=== PATIENT | male | born 1940 | race Caucasian/White ===

== ENCOUNTER 2021-04-07 07:55 | Day surgery (SDC) | payer MEDICARE ==
[~2021-04-07] VITALS: Ht 180.3 cm; Wt 97.7 kg
--- NOTE | ~2021-04-07 | OR ---
[facility] [address], [place] [address] [facility] DATE OF OPERATION: 04/07/2021 SURGEON: Petrona Sun MD PREOPERATIVE DIAGNOSIS: Incarcerated symptomatic left inguinal hernia. POSTOPERATIVE DIAGNOSIS: Incarcerated left inguinal hernia with sliding component (sigmoid colon). PROCEDURES: 1. Repair of incarcerated sliding left inguinal hernia (sigmoid colon). 2. Implantation of Prolene mesh underlay technique (prolonged, complicated, difficult). ANESTHESIA: General endotracheal. Vanesa Calderon CRNA and Fabian Garza CRNA and local 10 mL of 0.25% Marcaine with epinephrine. INDICATION: This 81-year-old white man is a patient of Carlo Ramos. He was noted to have pain in the left groin and was found to have a left inguinal hernia. Examination in the office shows him to have abdominal obesity, but a bulky firm non-reducible left inguinal hernia. This was confirmed on examination earlier in the day. My notes had indicated he had a reducible hernia, but upon review, it actually was not fully reducible only minimally so. He is admitted to undergo repair of the hernia. He understands the risks of bleeding, infection, recurrence, and other unforeseen complications. FINDINGS: A very bulky hernia was noted after all. His abdominal obesity is somewhat obscured finding clinically. He was found to have an incarcerated non-strangulated hernia, which included a portion of sigmoid colon about the size of a baseball. This was essentially in a sliding hernia as the wall of the sigmoid and mesentery were contiguous with the hernia sac itself. This was ultimately freed allowing for complete reduction of the sigmoid colon into the peritoneal cavity. The hernia sac itself was quite bulky, thick and vascularized. It was secured with a running 2-0 silk suture in a horizontal mattress technique allowing for excision of the remaining hernia sac. The cord structures were small, but normal overall. The floor of the canal was somewhat attenuated, but there was no sign of direct hernia proper. Marked attenuation of the external oblique was noted, really only a filmy layer testifying to the PATIENT NAME: MISAEL MALIN OPERATIVE REPORT DATE OF : 40 REPORT #: [id number] PHYSICIAN: PETRONA SUN MD PCP: CARLO RAMOS PAC REPORT IS CONFIDENTIAL AND NOT TO BE RELEASED WITHOUT AUTHORIZATION [facility] [address] [place] [id number] [facility] longstanding nature of this hernia. Ultimately, repair of the floor was undertaken with implantation of Prolene mesh in an underlay technique. DESCRIPTION OF PROCEDURE: The patient was brought to the operating room, given a general LMA type anesthetic. Preoperative antibiotic Ancef was given. Sequential compression device stockings were used. Heparin was subcutaneously administered. The lower abdomen was clipped and prepared with a chlorhexidine based solution and draped sterilely. The bulky hernia could not be reduced despite efforts to do so and only partially reduced and not much of fat. An incision was made directly over the mass in the left groin. Dissection carried through the subcutaneous tissue including Daniel's layer, inferior epigastric vessels were secured with electrocautery. Ultimately, the subcutaneous tissue was and markedly attenuated external oblique fibers over the bulky hernia were noted. This was a testimony to the longstanding nature of the hernia. That filmy layer was incised with electrocautery and the cord structures were identified and easily from the bulky hernia, which was about the size of a baseball. The cord structures were from the bulky hernia and encircled with a Connor drain. Various manipulations in hopes of reducing the hernia were unsuccessful. The sac was incised with electrocautery with all due care revealing inside the hernia sac, which showed a coiled loop of sigmoid colon. Palpation identified the defect to be approximately 3 cm consistent with an indirect hernia. The lateral wall appeared to be fused with the mesocolon, this was freed with meticulous dissection using electrocautery. Various manipulations were required to ultimately reduce the sigmoid colon and its mesentery into the peritoneal cavity, but was accomplished. The hernia sac was quite thickened and relatively vascular. It was oversewn in a running bidirectional fashion with horizontal 2-0 silk suture. The bulky hernia sac was excised and passed for pathology. An Allis clamp was applied to the tendon of the transversus abdominis. The attenuated fibers of the fascia transversalis were incised with electrocautery allowing for blunt dissection of properitoneal fat. A segment of Prolene mesh was cut to an elliptical configuration and secured in an underlay technique with interrupted 2-0 Prolene sutures. A defect was cut in the graft to accommodate the cord structures. The tails of the graft were secured laterally. Given the anatomic findings, the iliohypogastric nerve was excised rather than preserved given the surrounding anatomy and need for secure fixation of the mesh without encumbrance of the nerve itself. Irrigation was undertaken and 10 mL of 0.25% Marcaine was injected locally. Photographs were taken throughout the procedure. The attenuated fibers of the external oblique were reapproximated with 2-0 Vicryl suture, though at least half of the cord remains uncovered by the external oblique at least in the distal portion. Daniel layer was reapproximated with PATIENT NAME: MISAEL MALIN ANDREA OPERATIVE REPORT DATE OF : 40 REPORT #: [id number] PHYSICIAN: PETRONA SUN MD PCP: CARLO RAMOS PAC REPORT IS CONFIDENTIAL AND NOT TO BE RELEASED WITHOUT AUTHORIZATION [address] [place], [place] [address] [facility] interrupted 2-0 Vicryl and the skin was closed with running subcuticular 3-0 Vicryl. Steri-Strips were applied as was an Acticoat silver sponge dressing. The patient tolerated procedure well. Blood loss was less than 20 mL. Sponge, needle and instrument counts were as correct x3. The operation was prolonged, complicated, and difficult lasting three times longer than usual, but was accomplished safely and without complication. MD GABRIELE Sanches/ELLIOTL /[id number] cc: MANDA Pro Copies: ~ PATIENT NAME: MISAEL MALIN OPERATIVE REPORT DATE OF : 40 REPORT #: [id number] PHYSICIAN: PETRONA SUN MD PCP: CARLO RAMOS PAC REPORT IS CONFIDENTIAL AND NOT TO BE RELEASED WITHOUT AUTHORIZATION
[~2021-04-07 07:55] MED LIST: ALLER-TEC10 MG PO; COQ-10100 MG PO; LIPITOR10 MG; METAMUCIL660 GM; MULTI VITAMIN1 EACH PO; PRILOSEC OTC20 MG PO; VIT C-ROSE HIP500 MG PO
[2021-04-07] MEDS ORDERED: CENTRUM SILVER1 EAC3 PO (08:17)
--- NOTE | 2021-04-07 12:19 | NUR ---
04/07/21 1219 Sheets,Nathalie 1214 PT ARRIVED TO PACU ON 6L VIA MASK AND ORAL AIRWAY IN PLACE. VSS.
[2021-04-07] MEDS ORDERED: OXYCODON-ACETA1 EAC2 PO (12:47)
[2021-04-07] MEDS ORDERED: IBUPROFEN600 MG PO (12:47)
[2021-04-07] MEDS ORDERED: ACETAMINOPHEN500 MG PO (12:47)
--- NOTE | 2021-04-07 13:06 | NUR ---
PATIENT BACK TO ROOM FROM PACU. RECEIVED REPORT FROM ALTAF HENDERSON. VSS, PATIENT ON 2L OF O2. PATIENT RATES HIS PAIN 5/10. DENIES NAUSEA. PATIENTS DRESSING IS CLEAN, DRY, AND INTACT. PROVIDED PATIENT WITH APPLESAUCE AND WATER. AT BEDSIDE. CALL LIGHT WITHIN REACH.
--- NOTE | 2021-04-07 13:35 | NUR ---
PATIENT RATES HIS PAIN 5/10. PAIN MEDICATION GIVEN PER SEP.
--- NOTE | 2021-04-07 14:09 | NUR ---
PATIENT IS RESTING COMFORTABLY IN BED. VSS, REMOVED PATIENTS OXYGEN AT 1330 AND HIS 02 SATS OF ROOM AIR ARE 93-95. PATIENT RATES PAIN A 2/10. DENIES NAUSESA. PATIENTS DRESSING HAS A COUPLE OF SMALL SPOTS OF RED DRAINAGE. PATIENT DRINKING WATER. AT BEDSIDE. CALL LIGHT WITHIN REACH.
--- NOTE | 2021-04-07 14:35 | NUR ---
PATIENT UP TO THE BATHROOM WITH 1 RN ASSIST. GAIT STEADY AND TOLERATED WELL. PATIENT VOIDED 300ML. PATIENT RATES PAIN 2/10.
--- NOTE | 2021-04-07 14:45 | NUR ---
PROVIDED PATIENT WITH DISCHARGE INSTRUCTIONS. PATIENT VERBALIZED UNDERSTANDING AND ALL QUESTIONS WERE ANSWERED. PROVIDED PATIENT WITH WHEELCHAIR RIDE TO FRONT OF HOSPITAL WHERE WAS WAITING.
--- NOTE | 2021-04-08 15:47 | PATH ---
[facility] [address], [place] [address] Signed SPECIMEN(S): A LEFT INGUINAL HERNIA SAC SPECIMEN SOURCE: A. LEFT INGUINAL HERNIA SAC CLINICAL HISTORY: Left inguinal hernia repair. FINAL PATHOLOGIC DIAGNOSIS: Hernia sac, left inguinal, excision: - Lobulated mature fibroadipose tissue, consistent with lipoma. NAL:[facility]:C2[facility] MICROSCOPIC EXAMINATION: Histologic sections of all submitted blocks are examined by light microscopy. These findings, together with the gross examination, support the pathologic diagnosis. GROSS DESCRIPTION: The specimen, labeled "GA, A.," and designated on the requisition "left inguinal hernia sac," is received in formalin and consists of kenny-pink membranous adipose tissue fragment measuring 9.0 x 7.8 x 2.1 cm. Cut surface is unremarkable and collections representative sections are submitted in cassette (A1). AT (under the direct supervision of a pathologist) The Gross Description was prepared using a voice recognition system. The report was reviewed for accuracy; however, sound-alike word errors, addition and/or deletions may occur. If there is any question about this report, please contact Client Services. PERFORMING LABORATORY: The technical component was performed by [facility], [address] [place] [address] (Textile Conversion Manager: Shaniec Portillo MD; CLIA# [id number]). Professional interpretation was performed by [facility], [facility], [address] [address] (CLIA# [id number]). Diagnostician: Patito Craig MD Pathologist Electronically Signed 04/08/2021 PATIENT NAME: MISAEL MALIN PATHOLOGY DATE OF : 40 REPORT #: [id number] PHYSICIAN: JOAN PATHOLOGY PCP: CARLO RAMOS PAC REPORT IS CONFIDENTIAL AND NOT TO BE RELEASED WITHOUT AUTHORIZATION [address] [place], [place] [address] Signed Copies: ~ PATIENT NAME: MISAEL MALIN PATHOLOGY DATE OF : 40 REPORT #: [id number] PHYSICIAN: JOAN PATHOLOGY PCP: CARLO RAMOS PAC REPORT IS CONFIDENTIAL AND NOT TO BE RELEASED WITHOUT AUTHORIZATION
== END 2021-04-07 14:55 | disposition home or self-care (01) ==
LOC: DS 07:55
PROVIDERS: ATTEND Surgery
PROC: 0YU60JZ Supplement Left Inguinal Region with Synthetic Substitute, Open Approach (ICD-10-PCS; principal; 2021-04-07 08:15)
DX: K40.90 Unilateral inguinal hernia, without obstruction or gangrene, not specified as recurrent (principal); J44.9 Chronic obstructive pulmonary disease, unspecified; Z85.46 Personal history of malignant neoplasm of prostate
CPT/HCPCS: C1781; J0131; J0330; J0690; J1100; J1644; J1885; J2001; J2405; J2704; J3010; J7121

== ENCOUNTER 2022-05-18 07:55 | Day surgery (SDC) | payer MEDICARE ==
[~2022-05-18] VITALS: Ht 180.3 cm; Wt 100.0 kg
--- NOTE | ~2022-05-18 | OR ---
[facility] [address] [place], [place] [address] [facility] DATE OF OPERATION: 05/18/2022 SURGEON: Petrona Sun MD PREOPERATIVE DIAGNOSES: 1. Right inguinal hernia, symptomatic. 2. ITP (idiopathic thrombocytopenia purpura) current platelet count 148,000. POSTOPERATIVE DIAGNOSES: 1. Right indirect inguinal hernia with sliding component (bladder fat). 2. Repair of right inguinal hernia (sliding type) with excision of bladder fat and implantation of Prolene mesh in underlay technique. ANESTHESIA: General endotracheal, Louie Peralta CRNA and local 20 mL of 0.25% Marcaine with epinephrine. INDICATION: This 82-year-old white man is a patient of Carlo Ramos. He underwent repair of a complex incarcerated left inguinal hernia by wv, which had essentially all the sigmoid colon in it, in April of 2021. He has underlying ITP (idiopathic thrombocytopenic purpura) and sees Dr. Shrestha on a routine basis for that. His preoperative platelet count was 148,000. He has no evidence of bleeding, bruising, or other issue. He has developed a right inguinal hernia which is somewhat bulky, but nothing compared to the left side previously. The patient does have history of prostate cancer including surgical resection in 2016. He is admitted at this time to undergo repair of the symptomatic right inguinal hernia. He understands the risks of bleeding, infection, recurrence and so on. FINDINGS: The cord structures were well identified. The iliohypogastric nerve was well identified and ilioinguinal nerve on the left easily seen. An indirect hernia sac was noted as well as bladder fat and sliding component of bladder fat. Repair consisted of dissection of indirect sac, excision of the bladder fat, ligation of the hernia sac and implantation of Prolene mesh in an underlay technique. He tolerated the procedure well. DESCRIPTION OF PROCEDURE: The patient was brought to the operating room, given a general endotracheal anesthetic. PATIENT NAME: MISAEL MALIN OPERATIVE REPORT DATE OF : 40 REPORT #: [id number] PHYSICIAN: PETRONA SUN MD PCP: CARLO RAMOS PAC REPORT IS CONFIDENTIAL AND NOT TO BE RELEASED WITHOUT AUTHORIZATION [facility] [address] [place], [place] [address] [facility] Preoperative antibiotic Ancef was given. Sequential compression device stockings were used and heparin subcutaneously administered. The abdomen was clipped and prepared with a chlorhexidine solution and draped sterilely. A curvilinear incision was made cephalad to the pubic tubercle on the left. Dissection was carried through the thick abdominal wall fatty tissue ultimately extending to the external oblique fascia. This was incised along its fibers revealing the bulky cord and cord structures. An iliohypogastric nerve branch was easily identified and the ilioinguinal nerve which was smaller was identified as well and unharmed. Electrocautery and blunt dissection were used to separate the cord from the floor of the canal. Cord structures were encircled with a [place] drain. Dissection of the indirect hernia sac was undertaken with meticulous care and it is moderately large indirect sac. The and this would be most consistent with a sliding tumor bladder fat. Further dissection of the hernia sac to free the bladder fat was undertaken and it became clear that much of the bladder fat was external to the hernia sac proper. It was ultimately fully isolated and measured approximately 6-8 cm and was found to contain no bladder proper nor ureter or other structure. Reduction to the properitoneal space was a consideration but given its good exposure, simple excision was undertaken with electrocautery causing no bleeding. This allowed for good visualization of indirect sac. The indirect sac was secured with a 2-0 silk suture and redundant hernia sac amputated and passed for pathology. An Allis clamp was applied to the tendon of the transversus abdominis and the attenuated fibers of the fascia of the transversalis were incised with electrocautery. Blunt dissection was used to separate the properitoneal fat. A segment of Prolene mesh was cut to an elliptical configuration and secured in the properitoneal space with interrupted 2-0 Prolene sutures. A defect was cut in the graft to accommodate the cord and the tails of the graft were secured laterally without encumbrance of any regional nerves. 20 mL of 0.25% Marcaine with epinephrine was injected locally. The external oblique was reapproximated with running 2-0 Vicryl suture. Daniel layer was reapproximated with interrupted 2-0 Vicryl and skin closed with running subcuticular 3-0 Vicryl. Steri-Strips were applied as was an Acticoat dressing. The patient tolerated the procedure well. BLOOD LOSS: Minimal. COMPLICATIONS: None. PATIENT NAME: MISAEL MALIN OPERATIVE REPORT DATE OF : 40 REPORT #: [id number] PHYSICIAN: PETRONA SUN MD PCP: CARLO RAMOS PAC REPORT IS CONFIDENTIAL AND NOT TO BE RELEASED WITHOUT AUTHORIZATION [address] [address] [facility] MD GABRIELE Sanches/MODL /[id number] cc: MANDA Pro Copies: ~ PATIENT NAME: MISAEL MALIN OPERATIVE REPORT DATE OF : 40 REPORT #: [id number] PHYSICIAN: PETRONA SUN MD PCP: CARLO RAMOS PAC REPORT IS CONFIDENTIAL AND NOT TO BE RELEASED WITHOUT AUTHORIZATION
[~2022-05-18 07:55] MED LIST changes: +ACETAMINOPHEN500 MG PO; +CENTRUM SILVER1 EAC3 PO; +CO Q-10 WITH L1 EACH PO; +IBUPROFEN600 MG PO; +OXYCODON-ACETA1 EAC2 PO
--- NOTE | 2022-05-18 12:44 | NUR ---
05/18/22 1244 Tianna Harrington 1238- PT ARRIVES TO PACU AWAKE AND TALKING. PT REPORTS NO PAIN OR NAUSEA. DOES FALL ASLEEP INTERMITTENTLY. AWAKES ON AND OFF ON HIS OWN. RESP EVEN AND UNLABORED. OXYGEN SAT LOW 90'S ON RA. 1241- PT ENCOURAGED TO COUGH AND DEEP BREATHE HIS OXYGEN SAT DROPPED TO 87% ON RA. PT IS ABLE TO DO THIS AND OXYGEN SAT INCREASED TO 94% ON RA.
--- NOTE | 2022-05-18 14:37 | NUR ---
1310: PATIENT BACK IN DAY SURGERY ROOM FROM PACU. RATES PAIN 3/10. GIVEN ICE WATER AND CHOCOLATE PUDDING. RIGHT GROIN DRESSING CDI. VS CHECKED. IV SITE WNL. SCDs ON. AT BEDSIDE. CALL LIGHT WITHIN REACH. 1408: VS CHECKED. O2 TURNED OFF. PATIENT ON ROOM AIR. CALL LIGHT WITHIN REACH. AT BEDSIDE. 1417: PATIENT MAINTAINING O2 SATS ON ROOM AIR.
--- NOTE | 2022-05-18 16:07 | NUR ---
1450: DISCHARGE INSTRUCTIONS GIVEN TO PATIENT AND . PATIENT DRESSED WITH STAND BY ASSIST. STAND BY ASSIST TO BATHROOM. VOID WITHOUT DIFFICULTY. GAIT STEADY BACK TO ROOM. IV DC'D WNL. TIP INTACT. DRESSING APPLIED. 1500: PATIENT DISCHARGED TO HOME VIA WHEELCHAIR WITH .
== END 2022-05-18 15:00 | disposition home or self-care (01) ==
LOC: DS 07:55
PROVIDERS: ATTEND Surgery
PROC: 0YU50JZ Supplement Right Inguinal Region with Synthetic Substitute, Open Approach (ICD-10-PCS; principal; 2022-05-18 09:45)
DX: K40.90 Unilateral inguinal hernia, without obstruction or gangrene, not specified as recurrent (principal); E78.5 Hyperlipidemia, unspecified; D69.3 Immune thrombocytopenic purpura
CPT/HCPCS: C1781; J0330; J0690; J1100; J1644; J2405; J2704; J3010; J7121